=== PATIENT | male | born 1990 | race Caucasian/White ===

== ENCOUNTER 2016-07-07 14:17 | Emergency (ER) | payer SELFPAY ==
[~2016-07-07] VITALS: Ht 167.6 cm; Wt 55.1 kg
[2016-07-07 17:29] VITALS: BP 153/108
[2016-07-07 17:44] LABS: HEMOGLOBIN 14.3 g/dL (13.7-18.0)
[2016-07-07 17:56] LABS: ASPARTATE AMINO TRANSFERASE 13 U/L (15-37); BLOOD UREA NITROGEN 13 mg/dL (7-18)
[2016-07-07] MEDS ORDERED: CEFTRIAXONE 1,000 MG IM ONE (19:00)
[2016-07-07] MEDS ORDERED: CEFTRIAXONE 1,000 MG ONE (19:26)
== END 2016-07-07 20:08 | disposition home or self-care (01) ==
LOC: ED 18:08
DX: J18.9 Pneumonia, unspecified organism (principal); F12.10 Cannabis abuse, uncomplicated
CPT/HCPCS: 36415; 71010; 80053; 81003; 85025; 96372; 99285; J0696